=== PATIENT | female | born 1970 | race Caucasian/White ===

== ENCOUNTER 2019-09-20 19:25 | Inpatient (IN) | payer OTHER ==
[~2019-09-20] VITALS: Ht 172.7 cm; Wt 59.3 kg
[2019-09-20] MEDS ORDERED: SODIUM CHLORIDE 0.9% 1,000 ML IV ONE (19:30)
[2019-09-20] MEDS ORDERED: InsuLIN REG 1unit/0.01ml Soln (100units/ml) IV ONE (19:30)
[2019-09-20 20:04] LABS: Eosinophils # (auto) 0 10 ^3/uL (0-0.8); Eosinophils % (auto) 0.1 % (0.0-7.0); Monocytes # (auto) 0.3 10 ^3/uL (0-1.3); Neutrophils # (auto) 18.6 10 ^3/uL (1.6-8.6)
[2019-09-20 20:06] LABS: Basophils # (auto) 0 10 ^3/uL (0-0.2); Basophils % (auto) 0.2 % (0.0-2.0); Hematocrit 48.6 % (36.0-46.0); Hemoglobin 15.8 g/dL (12.2-16.2); Lymphocytes # (auto) 1.7 10 ^3/uL (0.4-5.4); Lymphocytes % (auto) 8.3 % (10.0-50.0); Mean Corpuscular Hemoglobin 28.2 pg (28.0-32.0); Mean Corpuscular Hgb Conc. 32.6 g/dL (32.0-36.0); Mean Corpuscular Volume 86.6 fL (80.0-100.0); Monocytes % (auto) 1.3 % (0.0-12.0); Neutrophils % (auto) 90.1 % (37.0-80.0); Platelet Count (auto) 455 10^3/uL (140-450); Red Blood Cells 5.61 10^6/uL (4.0-5.20); Red Cell Distribution Width 14.5 % (11.8-14.3); White Blood Cell 20.7 10^3/uL (4.4-10.8)
[2019-09-20 20:22] LABS: INR 0.98 (0.9-1.15); Partial Thromboplastin Time 35.7 sec (23.64-32.05)
[2019-09-20 20:23] LABS: Albumin 2.8 g/dL (3.4-5.0); Anion Gap 25 (5-15); Blood Urea Nitrogen 21 mg/dL (7-18); Calcium 8.5 mg/dL (8.5-10.1); Chloride 110 mmol/L (98-107); Magnesium 2.9 mg/dL (1.6-2.6); Potassium 4.2 mmol/L (3.5-5.1); Sodium 139 mmol/L (136-145)
[2019-09-20 20:30] LABS: Alanine Aminotransferase 16 U/L (13-56); Alkaline Phosphatase 93 U/L (45-117); Aspartate Aminotransferase 13 U/L (15-37); BUN/Creatinine Ratio 23.6; Bilirubin, Total 0.5 mg/dL (0.2-1.0); GFR African American 87 mL/min; GFR Non-African American 72 mL/min; Total Protein 7.9 g/dL (6.4-8.2)
[2019-09-20 20:43] LABS: Carbon Dioxide 4 mmol/L (21-32); Glucose 452 mg/dL (74-106)
[2019-09-20] MEDS ORDERED: SODIUM BICARBONATE 8.4 % INJ 50ML VIAL IV ONE ×3 (20:45→23:45)
[2019-09-20] MEDS ORDERED: ETOMIDATE (2MG/ML) 20ML VIAL IV ONE (20:45)
[2019-09-20] MEDS ORDERED: SUCCINYLCHOLINE CHLORIDE 20 MG/ML 10ML VIAL IV ONE (20:45)
[2019-09-20] MEDS ORDERED: SODIUM BICARBONATE 8.4% INJ 50ML SYRINGE ONE ×2 (20:46→21:12)
[2019-09-20] MEDS ORDERED: ATROPINE SULF 0.5 MG/5ML SYR ONE (21:10)
[2019-09-20] MEDS: MIDAZOLAM DRIP 50 mg/50mL 50 ML IV SCH (21:14)
[2019-09-20] MEDS ORDERED: ATROPINE SULF 1 MG/10ml SYR IV ONE (21:15)
[2019-09-20] MEDS ORDERED: MIDAZOLAM DRIP 50 mg/50mL 50 ML IV ONE (21:17)
[2019-09-20] MEDS ORDERED: MIDAZOLAM DRIP 50 mg/50mL 50 ML IV SCH (21:19)
[2019-09-20] MEDS ORDERED: InsuLIN R (HUMAN) 100 UNITS in SODIUM CHL 0.9% 99 ML IV SCH (23:04)
[2019-09-20 23:14] LABS: Urine Bacteria FEW /hpf (None Seen); Urine Blood TRACE /uL (Negative); Urine Specific Gravity 1.024 (1.001-1.035); Urine WBC 1 /hpf (0 - 5)
[2019-09-20 23:15] VITALS: BP 106/65
[2019-09-20] MEDS ORDERED: POTASSIUM CHL 20MEQ/100ML 100 ML IV ONE (23:15)
[2019-09-20] MEDS ORDERED: SODIUM CHLORIDE 0.9% 1,000 ML IV SCH (23:15)
[2019-09-20] MEDS ORDERED: InsuLIN REG 1unit/0.01ml Soln (100units/ml) ONE (23:18)
[2019-09-20] MEDS: ACCU-CHEK COMFORT CURVE STRIP VI SCH (23:42)
[2019-09-20] MEDS ORDERED: SODIUM CHLORIDE 0.9% 2,000 ML IV ONE (23:45)
[2019-09-21] VITALS (74 sets, daily range): BP systolic 66–161; BP diastolic 57–87
[2019-09-21] MEDS ORDERED: SODIUM BICARBONATE 8.4% INJ 50ML SYRINGE ONE ×2 (00:02→03:10)
[2019-09-21] MEDS: ACCU-CHEK COMFORT CURVE STRIP VI SCH ×15 (00:44→22:38)
[2019-09-21] MEDS ORDERED: dilTIAZem 25 MG/5 ML VIAL IV ONE (01:15)
[2019-09-21] MEDS: MIDAZOLAM DRIP 50 mg/50mL 50 ML IV SCH ×7 (01:24→21:22)
[2019-09-21] MEDS ORDERED: D5W/SOD CHLO 0.9% 1,000 ML IV SCH (02:00)
[2019-09-21] MEDS ORDERED: cefTRIAXone 1GM/50ML D5W 50 ML IV ONE (02:45)
[2019-09-21] MEDS ORDERED: DEXTROSE (50%) 50ML SYRG IV PRN (02:45)
[2019-09-21] MEDS ORDERED: ACCU-CHEK COMFORT CURVE STRIP VI SCH (02:45)
[2019-09-21] MEDS ORDERED: ONDANSETRON HCL 4 MG/2 ML VIAL IV PRN (02:45)
[2019-09-21] MEDS ORDERED: ACETAMINOPHEN 325 MG TAB PO PRN (02:45)
[2019-09-21] MEDS ORDERED: SODIUM BICARBONATE 50ML VIAL 100 ML in SOD CHL 0.45% 1,000 ML IV SCH (02:45)
[2019-09-21] MEDS ORDERED: MORPHINE SULF INJ 2 MG/ML SYRINGE 1ML IV PRN (03:15)
[2019-09-21] MEDS ORDERED: NITROGLYCERIN 0.4 MG SL TAB SL PRN (03:15)
[2019-09-21] MEDS: InsuLIN R (HUMAN) 100 UNITS in SODIUM CHL 0.9% 99 ML IV SCH (03:20)
[2019-09-21 03:34] LABS: BUN/Creatinine Ratio 25.8; Calcium 7.3 mg/dL (8.5-10.1); Potassium 4.1 mmol/L (3.5-5.1)
[2019-09-21] MEDS ORDERED: ACETAMINOPHEN 650 MG RECT SUPP PR ONE (04:15)
[2019-09-21] MEDS ORDERED: SODIUM CHLORIDE 0.9% 1,000 ML IV SCH ×2 (06:33→08:33)
[2019-09-21] MEDS ORDERED: SODIUM BICARBONATE 50ML VIAL 150 ML in SOD CHL 0.45% 1,000 ML IV SCH (07:30)
[2019-09-21] MEDS ORDERED: SODIUM BICARBONATE 8.4 % INJ 50ML VIAL IV ONE (07:30)
[2019-09-21 08:01] LABS: Calcium 7.5 mg/dL (8.5-10.1); Potassium 3.6 mmol/L (3.5-5.1)
[2019-09-21 08:04] LABS: BUN/Creatinine Ratio 17.2
[2019-09-21] MEDS: PANTOPRAZOLE 40 MG/10 ML VIAL INJ IV SCH (08:17)
[2019-09-21] MEDS: cefTRIAXone 1GM/50ML D5W 50 ML IV SCH (08:18)
[2019-09-21] MEDS: PROPOFOL 100 ML IV SCH ×2 (10:23→16:48)
[2019-09-21] MEDS ORDERED: ENOXAPARIN SOD 40 MG/0.4 ML SYRINGE SC ONE (12:15)
[2019-09-21] MEDS: D5W/SOD CHL 0.45% 1,000 ML IV SCH ×2 (12:30→21:58)
[2019-09-21 12:46] LABS: Amylase 24 U/L (25-115); Basophils # (auto) 0 10 ^3/uL (0-0.2); Basophils % (auto) 0.2 % (0.0-2.0); Eosinophils # (auto) 0 10 ^3/uL (0-0.8); Hematocrit 39.8 % (36.0-46.0); Hemoglobin 13.2 g/dL (12.2-16.2); Lipase 151 U/L (73-393); Lymphocytes # (auto) 0.7 10 ^3/uL (0.4-5.4); Lymphocytes % (auto) 5.2 % (10.0-50.0); Mean Corpuscular Hgb Conc. 33.1 g/dL (32.0-36.0); Mean Corpuscular Volume 84.8 fL (80.0-100.0); Monocytes # (auto) 0.9 10 ^3/uL (0-1.3); Monocytes % (auto) 6.3 % (0.0-12.0); Neutrophils # (auto) 12.4 10 ^3/uL (1.6-8.6); Neutrophils % (auto) 88.3 % (37.0-80.0); Nucleated Red Blood Cells % 0.1 %; Platelet Count (auto) 280 10^3/uL (140-450); White Blood Cell 14.1 10^3/uL (4.4-10.8)
[2019-09-21] MEDS: FREE WATER GT SCH ×3 (13:29→21:58)
[2019-09-21] MEDS ORDERED: POTASSIUM PHOSPHATE 44 MEQ in D5W 5% 250 ML IV ONE (13:30)
[2019-09-21 16:12] LABS: BUN/Creatinine Ratio 11.1; Calcium 7.7 mg/dL (8.5-10.1); Potassium 3.3 mmol/L (3.5-5.1)
[2019-09-21 21:51] LABS: Calcium 7.9 mg/dL (8.5-10.1); Potassium 3.4 mmol/L (3.5-5.1)
[2019-09-22] VITALS (105 sets, daily range): BP systolic 101–163; BP diastolic 59–95
[2019-09-22] MEDS: MIDAZOLAM DRIP 50 mg/50mL 50 ML IV SCH ×7 (00:42→20:42)
[2019-09-22] MEDS: ACCU-CHEK COMFORT CURVE STRIP VI SCH ×16 (01:37→22:30)
[2019-09-22] MEDS: FREE WATER GT SCH ×6 (02:00→22:00)
[2019-09-22] MEDS: InsuLIN R (HUMAN) 100 UNITS in SODIUM CHL 0.9% 99 ML IV SCH (02:33)
[2019-09-22 04:23] LABS: Basophils # (auto) 0 10 ^3/uL (0-0.2); Basophils % (auto) 0.2 % (0.0-2.0); Eosinophils # (auto) 0 10 ^3/uL (0-0.8); Hematocrit 48.5 % (36.0-46.0); Hemoglobin 15.4 g/dL (12.2-16.2); Lymphocytes # (auto) 1.2 10 ^3/uL (0.4-5.4); Lymphocytes % (auto) 7.4 % (10.0-50.0); Mean Corpuscular Hemoglobin 28.4 pg (28.0-32.0); Mean Corpuscular Hgb Conc. 31.8 g/dL (32.0-36.0); Mean Corpuscular Volume 89.2 fL (80.0-100.0); Monocytes # (auto) 1.2 10 ^3/uL (0-1.3); Neutrophils # (auto) 14.3 10 ^3/uL (1.6-8.6); Neutrophils % (auto) 85.4 % (37.0-80.0); Platelet Count (auto) 242 10^3/uL (140-450); Red Blood Cells 5.44 10^6/uL (4.0-5.20); Red Cell Distribution Width 15.6 % (11.8-14.3); White Blood Cell 16.8 10^3/uL (4.4-10.8)
[2019-09-22 04:42] LABS: Calcium 8.2 mg/dL (8.5-10.1); Potassium 3.2 mmol/L (3.5-5.1)
[2019-09-22 04:46] LABS: Bilirubin, Total 0.4 mg/dL (0.2-1.0); Total Protein 7.3 g/dL (6.4-8.2)
[2019-09-22 07:39] LABS: Albumin 2.2 g/dL (3.4-5.0)
[2019-09-22] MEDS: D5W/SOD CHL 0.45% 1,000 ML IV SCH (08:00)
[2019-09-22] MEDS: cefTRIAXone 1GM/50ML D5W 50 ML IV SCH (08:55)
[2019-09-22] MEDS: PANTOPRAZOLE 40 MG/10 ML VIAL INJ IV SCH (09:33)
[2019-09-22] MEDS: ENOXAPARIN SOD 40 MG/0.4 ML SYRINGE SC SCH (09:33)
[2019-09-22] MEDS: PROPOFOL 100 ML IV SCH ×3 (09:33→16:17)
[2019-09-22] MEDS ORDERED: FUROSEMIDE 40 MG/4 ML VIAL IV ONE (09:45)
[2019-09-22] MEDS ORDERED: POTASSIUM EFFERVESENT TAB 25 MEQ GT ONE ×2 (09:45→10:15)
[2019-09-22] MEDS: D5W 5% 1,000 ML IV SCH (10:12)
[2019-09-22] MEDS: POTASSIUM CHL 20MEQ/100ML 100 ML IV SCH ×2 (10:12→11:52)
[2019-09-22 10:32] LABS: Magnesium 2.7 mg/dL (1.6-2.6); Phosphorus 2.1 mg/dL (2.5-4.90)
[2019-09-22 11:14] LABS: Amphetamine Screen, Urine NEGATIVE (NEGATIVE); Barbiturate Scree,Urine NEGATIVE (NEGATIVE); Benzodiazephine Screen, Urine POSITIVE (NEGATIVE); Cannabinoid Screen, Urine NEGATIVE (NEGATIVE); Cocaine Screen, Urine NEGATIVE (NEGATIVE); Opiate Scree,Urine NEGATIVE (NEGATIVE); Phencyclidine Screen, Urine NEGATIVE (NEGATIVE)
[2019-09-22] MEDS ORDERED: AZITHROMYCIN 500MG/ 250ML 250 ML IV ONE (11:30)
[2019-09-22 17:24] LABS: BUN/Creatinine Ratio 7.2; Calcium 8.3 mg/dL (8.5-10.1); Potassium 3.6 mmol/L (3.5-5.1)
[2019-09-23] VITALS (109 sets, daily range): BP systolic 106–162; BP diastolic 64–92
[2019-09-23] MEDS: MIDAZOLAM DRIP 50 mg/50mL 50 ML IV SCH ×8 (00:23→23:36)
[2019-09-23] MEDS: ACCU-CHEK COMFORT CURVE STRIP VI SCH ×11 (01:45→20:00)
[2019-09-23] MEDS: FREE WATER GT SCH ×6 (02:00→22:00)
[2019-09-23] MEDS: InsuLIN R (HUMAN) 100 UNITS in SODIUM CHL 0.9% 99 ML IV SCH (02:45)
[2019-09-23 05:15] LABS: Potassium 3.1 mmol/L (3.5-5.1)
[2019-09-23 05:21] LABS: BUN/Creatinine Ratio 11.3; Calcium 8.2 mg/dL (8.5-10.1)
[2019-09-23] MEDS: D5W 5% 1,000 ML IV SCH (06:03)
[2019-09-23] MEDS: cefTRIAXone 1GM/50ML D5W 50 ML IV SCH (09:06)
[2019-09-23] MEDS: PROPOFOL 100 ML IV SCH (09:06)
[2019-09-23] MEDS ORDERED: LOSA-69 PO (09:19)
[2019-09-23] MEDS ORDERED: [UNRECOGNIZED DRUG - CODE] PO (09:20)
[2019-09-23] MEDS: ENOXAPARIN SOD 40 MG/0.4 ML SYRINGE SC SCH (09:52)
[2019-09-23] MEDS: AZITHROMYCIN 500MG/ 250ML 250 ML IV SCH (09:52)
[2019-09-23] MEDS: PANTOPRAZOLE 40 MG/10 ML VIAL INJ IV SCH (09:52)
[2019-09-23] MEDS ORDERED: INSULIN LANTUS (GLARGINE) 1 /0.01ml (100units/ml) SC ONE (10:30)
[2019-09-23] MEDS: POTASSIUM CHL 20MEQ/100ML 100 ML IV SCH ×2 (10:53→12:35)
[2019-09-23] MEDS ORDERED: EMPA1TAB3 PO (13:04)
[2019-09-23] MEDS ORDERED: LEVO50TA7 PO (13:04)
[2019-09-23] MEDS ORDERED: GLIP5TAB12 PO (13:04)
[2019-09-23] MEDS ORDERED: METF1000 PO (13:04)
[2019-09-23] MEDS ORDERED: OMEG1400 PO (13:04)
[2019-09-23] MEDS ORDERED: DEXTROSE (50%) 50ML SYRG IV PRN (13:45)
[2019-09-23] MEDS: DexMEDEtomidine 400 MCG in D5W 5% 96 ML IV SCH (13:59)
[2019-09-23] MEDS: InsuLIN REG 1unit/0.01ml Soln (100units/ml) SC SCH ×2 (16:00→20:00)
[2019-09-23] MEDS ORDERED: SODIUM PHOSPHATES 40 MEQ in D5W 5% 250 ML IV ONE (16:15)
[2019-09-23] MEDS ORDERED: FLUCONAZOLE 200MG/100ML 100 ML IV ONE (17:00)
[2019-09-24] VITALS (97 sets, daily range): BP systolic 99–164; BP diastolic 64–97
[2019-09-24] MEDS: FREE WATER GT SCH ×6 (02:00→22:09)
[2019-09-24] MEDS: D5W 5% 1,000 ML IV SCH (02:00)
[2019-09-24] MEDS: MIDAZOLAM DRIP 50 mg/50mL 50 ML IV SCH ×7 (02:42→23:53)
[2019-09-24] MEDS: ACCU-CHEK COMFORT CURVE STRIP VI SCH ×12 (04:00→23:52)
[2019-09-24] MEDS: InsuLIN REG 1unit/0.01ml Soln (100units/ml) SC SCH ×3 (04:00→08:40)
[2019-09-24 04:36] LABS: Basophils # (auto) 0 10 ^3/uL (0-0.2); Basophils % (auto) 0.2 % (0.0-2.0); Eosinophils # (auto) 0 10 ^3/uL (0-0.8); Hematocrit 42.6 % (36.0-46.0); Hemoglobin 14.1 g/dL (12.2-16.2); Lymphocytes # (auto) 1.6 10 ^3/uL (0.4-5.4); Lymphocytes % (auto) 7.5 % (10.0-50.0); Mean Corpuscular Hemoglobin 28.3 pg (28.0-32.0); Mean Corpuscular Hgb Conc. 33.1 g/dL (32.0-36.0); Mean Corpuscular Volume 85.6 fL (80.0-100.0); Monocytes # (auto) 0.9 10 ^3/uL (0-1.3); Monocytes % (auto) 4.4 % (0.0-12.0); Neutrophils # (auto) 18.6 10 ^3/uL (1.6-8.6); Neutrophils % (auto) 87.9 % (37.0-80.0); Nucleated Red Blood Cells % 0.1 %; Platelet Count (auto) 243 10^3/uL (140-450); Red Blood Cells 4.98 10^6/uL (4.0-5.20); Red Cell Distribution Width 15.5 % (11.8-14.3); White Blood Cell 21.1 10^3/uL (4.4-10.8)
[2019-09-24 05:07] LABS: Alanine Aminotransferase 9 U/L (13-56); Alkaline Phosphatase 100 U/L (45-117); Aspartate Aminotransferase 8 U/L (15-37); Bilirubin, Total 0.5 mg/dL (0.2-1.0); Blood Urea Nitrogen 10 mg/dL (7-18); Calcium 8.7 mg/dL (8.5-10.1); Carbon Dioxide 12 mmol/L (21-32); GFR African American 76 mL/min; GFR Non-African American 63 mL/min; Glucose 213 mg/dL (74-106); Phosphorus 2.4 mg/dL (2.5-4.90); Total Protein 7.5 g/dL (6.4-8.2)
[2019-09-24 05:16] LABS: Albumin 1.8 g/dL (3.4-5.0); Anion Gap 18 (5-15); Chloride 119 mmol/L (98-107); Sodium 149 mmol/L (136-145)
[2019-09-24] MEDS: cefTRIAXone 1GM/50ML D5W 50 ML IV SCH (08:45)
[2019-09-24] MEDS: AZITHROMYCIN 500MG/ 250ML 250 ML IV SCH (10:26)
[2019-09-24] MEDS: POTASSIUM CHL 20MEQ/100ML 100 ML IV SCH ×4 (10:26→22:09)
[2019-09-24] MEDS: ENOXAPARIN SOD 40 MG/0.4 ML SYRINGE SC SCH (10:27)
[2019-09-24] MEDS: PANTOPRAZOLE 40 MG/10 ML VIAL INJ IV SCH (10:27)
[2019-09-24] MEDS ORDERED: SODIUM BICARBONATE 8.4 % INJ 50ML VIAL IV ONE (10:45)
[2019-09-24] MEDS: POTASSIUM CHLORIDE 40 MEQ in D5W 5% 1,000 ML IV SCH (11:24)
[2019-09-24] MEDS: PROPOFOL 100 ML IV SCH ×3 (11:43→23:53)
[2019-09-24] MEDS: InsuLIN R (HUMAN) 100 UNITS in SODIUM CHL 0.9% 99 ML IV SCH (11:43)
[2019-09-24] MEDS: FLUCONAZOLE 200MG/100ML 100 ML IV SCH (12:53)
[2019-09-24] MEDS: DexMEDEtomidine 400 MCG in D5W 5% 96 ML IV SCH (13:17)
[2019-09-24 18:03] LABS: BUN/Creatinine Ratio 9.3; Calcium 8.4 mg/dL (8.5-10.1); Potassium 3.3 mmol/L (3.5-5.1)
[2019-09-24] MEDS: fentaNYL Drip 2500mCg/250mlNS 250 ML IV SCH (21:00)
[2019-09-24] MEDS: PIPERACILLIN-TAZOB 3.375GM 100 ML IV SCH (23:52)
[2019-09-25] VITALS (103 sets, daily range): BP systolic 56–126; BP diastolic 49–77
[2019-09-25] MEDS: ACCU-CHEK COMFORT CURVE STRIP VI SCH ×9 (01:30→18:23)
[2019-09-25] MEDS: FREE WATER GT SCH ×6 (02:00→21:28)
[2019-09-25] MEDS: MIDAZOLAM DRIP 50 mg/50mL 50 ML IV SCH ×7 (02:02→22:02)
[2019-09-25 04:25] LABS: Basophils # (auto) 0.1 10 ^3/uL (0-0.2); Basophils % (auto) 0.3 % (0.0-2.0); Eosinophils # (auto) 0 10 ^3/uL (0-0.8); Eosinophils % (auto) 0.2 % (0.0-7.0); Hematocrit 35.9 % (36.0-46.0); Hemoglobin 12.1 g/dL (12.2-16.2); Lymphocytes # (auto) 1.4 10 ^3/uL (0.4-5.4); Lymphocytes % (auto) 9.2 % (10.0-50.0); Mean Corpuscular Hemoglobin 28.6 pg (28.0-32.0); Mean Corpuscular Hgb Conc. 33.7 g/dL (32.0-36.0); Mean Corpuscular Volume 84.9 fL (80.0-100.0); Monocytes # (auto) 0.6 10 ^3/uL (0-1.3); Monocytes % (auto) 3.9 % (0.0-12.0); Neutrophils # (auto) 12.9 10 ^3/uL (1.6-8.6); Neutrophils % (auto) 86.4 % (37.0-80.0); Nucleated Red Blood Cells % 0.1 %; Platelet Count (auto) 237 10^3/uL (140-450); Red Blood Cells 4.23 10^6/uL (4.0-5.20); Red Cell Distribution Width 15.4 % (11.8-14.3)
[2019-09-25] MEDS: PROPOFOL 100 ML IV SCH ×3 (04:30→21:38)
[2019-09-25 04:42] LABS: Calcium 8.6 mg/dL (8.5-10.1); Magnesium 2.5 mg/dL (1.6-2.6); Potassium 3.2 mmol/L (3.5-5.1)
[2019-09-25 04:46] LABS: BUN/Creatinine Ratio 10.6; Bilirubin, Total 0.4 mg/dL (0.2-1.0); Phosphorus 1.7 mg/dL (2.5-4.90); Total Protein 7.3 g/dL (6.4-8.2)
[2019-09-25 05:27] LABS: Albumin 1.6 g/dL (3.4-5.0)
[2019-09-25] MEDS: PIPERACILLIN-TAZOB 3.375GM 100 ML IV SCH ×3 (05:33→18:22)
[2019-09-25 05:44] LABS: INR 0.93 (0.9-1.15); Partial Thromboplastin Time 31.3 sec (23.64-32.05)
[2019-09-25] MEDS ORDERED: SODIUM PHOSPHATES 20 MEQ in SODIUM CHL 0.9% 100 ML IV ONE (05:45)
[2019-09-25] MEDS: POTASSIUM CHL 20MEQ/100ML 100 ML IV SCH ×2 (06:09→08:42)
[2019-09-25] MEDS: POTASSIUM CHLORIDE 40 MEQ in D5W 5% 1,000 ML IV SCH ×2 (07:09→21:30)
[2019-09-25] MEDS: ENOXAPARIN SOD 40 MG/0.4 ML SYRINGE SC SCH (09:53)
[2019-09-25] MEDS: PANTOPRAZOLE 40 MG/10 ML VIAL INJ IV SCH (09:53)
[2019-09-25] MEDS ORDERED: levoFLOXacin 750MG 150 ML IV SCH (10:00)
[2019-09-25] MEDS: InsuLIN R (HUMAN) 100 UNITS in SODIUM CHL 0.9% 99 ML IV SCH (10:44)
[2019-09-25] MEDS: FLUCONAZOLE 200MG/100ML 100 ML IV SCH (12:22)
[2019-09-25] MEDS: DexMEDEtomidine 400 MCG in D5W 5% 96 ML IV SCH (13:01)
[2019-09-25 14:57] LABS: Albumin 1.4 g/dL (3.4-5.0); Calcium 8.2 mg/dL (8.5-10.1); Potassium 3.6 mmol/L (3.5-5.1)
[2019-09-25 15:00] LABS: BUN/Creatinine Ratio 14.3; Bilirubin, Total 0.2 mg/dL (0.2-1.0); Total Protein 6.3 g/dL (6.4-8.2)
[2019-09-25] MEDS ORDERED: DEXTROSE (50%) 50ML SYRG IV PRN (15:45)
[2019-09-25] MEDS: InsuLIN REG 1unit/0.01ml Soln (100units/ml) SC SCH (18:29)
[2019-09-25] MEDS: fentaNYL Drip 2500mCg/250mlNS 250 ML IV SCH (20:50)
[2019-09-25] MEDS: INSULIN LANTUS (GLARGINE) 1 /0.01ml (100units/ml) SC SCH (21:38)
[2019-09-25] MEDS ORDERED: INSULIN LANTUS (GLARGINE) 1 /0.01ml (100units/ml) SC SCH (22:00)
[2019-09-26] VITALS (100 sets, daily range): BP systolic 89–150; BP diastolic 60–92
[2019-09-26] MEDS: InsuLIN REG 1unit/0.01ml Soln (100units/ml) SC SCH ×4 (00:15→18:06)
[2019-09-26] MEDS: PIPERACILLIN-TAZOB 3.375GM 100 ML IV SCH ×3 (00:15→12:07)
[2019-09-26] MEDS: ACCU-CHEK COMFORT CURVE STRIP VI SCH ×4 (00:15→18:05)
[2019-09-26] MEDS: MIDAZOLAM DRIP 50 mg/50mL 50 ML IV SCH ×7 (01:22→21:22)
[2019-09-26] MEDS: FREE WATER GT SCH ×6 (02:00→22:00)
[2019-09-26 04:26] LABS: Basophils # (auto) 0 10 ^3/uL (0-0.2); Basophils % (auto) 0.2 % (0.0-2.0); Eosinophils # (auto) 0.1 10 ^3/uL (0-0.8); Eosinophils % (auto) 1.5 % (0.0-7.0); Hematocrit 30.4 % (36.0-46.0); Hemoglobin 10.3 g/dL (12.2-16.2); Lymphocytes % (auto) 13.3 % (10.0-50.0); Mean Corpuscular Hemoglobin 28.3 pg (28.0-32.0); Mean Corpuscular Hgb Conc. 33.8 g/dL (32.0-36.0); Mean Corpuscular Volume 83.9 fL (80.0-100.0); Monocytes # (auto) 0.6 10 ^3/uL (0-1.3); Monocytes % (auto) 7.5 % (0.0-12.0); Neutrophils % (auto) 77.5 % (37.0-80.0); Nucleated Red Blood Cells % 0.1 %; Platelet Count (auto) 208 10^3/uL (140-450); Red Blood Cells 3.63 10^6/uL (4.0-5.20); Red Cell Distribution Width 15.1 % (11.8-14.3); White Blood Cell 7.8 10^3/uL (4.4-10.8)
[2019-09-26 04:46] LABS: Potassium 3.6 mmol/L (3.5-5.1)
[2019-09-26 04:55] LABS: BUN/Creatinine Ratio 19.4; Bilirubin, Total 0.2 mg/dL (0.2-1.0); Calcium 8.2 mg/dL (8.5-10.1); Magnesium 2.6 mg/dL (1.6-2.6); Phosphorus 2.9 mg/dL (2.5-4.90); Total Protein 6.4 g/dL (6.4-8.2)
[2019-09-26 04:59] LABS: INR 0.95 (0.9-1.15)
[2019-09-26 05:17] LABS: Albumin 1.3 g/dL (3.4-5.0)
[2019-09-26] MEDS: PANTOPRAZOLE 40 MG/10 ML VIAL INJ IV SCH (09:46)
[2019-09-26] MEDS: ENOXAPARIN SOD 40 MG/0.4 ML SYRINGE SC SCH (09:46)
[2019-09-26] MEDS: FLUCONAZOLE 200MG/100ML 100 ML IV SCH (12:07)
[2019-09-26] MEDS: DexMEDEtomidine 400 MCG in D5W 5% 96 ML IV SCH (12:45)
[2019-09-26] MEDS ORDERED: MICAFUNGIN SODIUM 100 MG in SODIUM CHL 0.9% 100 ML IV ONE (14:15)
[2019-09-26] MEDS ORDERED: FUROSEMIDE 40 MG/4 ML VIAL IV ONE (14:15)
[2019-09-26] MEDS: fentaNYL Drip 2500mCg/250mlNS 250 ML IV SCH (20:50)
[2019-09-27] VITALS (100 sets, daily range): BP systolic 100–179; BP diastolic 62–123
[2019-09-27] MEDS: MIDAZOLAM DRIP 50 mg/50mL 50 ML IV SCH ×6 (00:42→17:22)
[2019-09-27] MEDS: InsuLIN REG 1unit/0.01ml Soln (100units/ml) SC SCH ×4 (01:33→18:06)
[2019-09-27] MEDS: ACCU-CHEK COMFORT CURVE STRIP VI SCH ×4 (01:33→18:05)
[2019-09-27] MEDS: INSULIN LANTUS (GLARGINE) 1 /0.01ml (100units/ml) SC SCH ×2 (01:34→22:19)
[2019-09-27] MEDS: FREE WATER GT SCH ×5 (01:37→22:17)
[2019-09-27] MEDS ORDERED: MICAFUNGIN SODIUM 100 MG in SODIUM CHL 0.9% 100 ML IV SCH (10:00)
[2019-09-27] MEDS ORDERED: levoFLOXacin 750MG 150 ML IV SCH (10:00)
[2019-09-27] MEDS: ENOXAPARIN SOD 40 MG/0.4 ML SYRINGE SC SCH (10:31)
[2019-09-27] MEDS: PANTOPRAZOLE 40 MG/10 ML VIAL INJ IV SCH (10:32)
[2019-09-27] MEDS: PROPOFOL 100 ML IV SCH ×2 (10:34→18:00)
[2019-09-27] MEDS: fentaNYL Drip 2500mCg/250mlNS 250 ML IV SCH (10:45)
[2019-09-27] MEDS: DexMEDEtomidine 400 MCG in D5W 5% 96 ML IV SCH (12:29)
[2019-09-27] MEDS ORDERED: IOHEXOL 350 MG/ML 100ML IJ ONE (14:04)
[2019-09-27] MEDS ORDERED: TPN PER PHARMACY 0 ML IV SCH (14:15)
[2019-09-27] MEDS ORDERED: VANCOMYCIN PER PHARMACY 0 MG IV SCH (15:30)
[2019-09-27] MEDS: VANCOMYCIN 1GM/250ML 250 ML IV SCH (17:05)
[2019-09-27] MEDS ORDERED: AMINO ACID INFUSION IN D5W 2,000 ML IV NR (20:00)
[2019-09-28] VITALS (100 sets, daily range): BP systolic 83–164; BP diastolic 49–93
[2019-09-28] MEDS ORDERED: DEXTROSE (50%) 50ML SYRG IV SCH
[2019-09-28] MEDS: VANCOMYCIN 1GM/250ML 250 ML IV SCH ×3 (01:00→19:41)
[2019-09-28] MEDS: FREE WATER GT SCH ×6 (02:00→22:06)
[2019-09-28 05:08] LABS: Calcium 8.9 mg/dL (8.5-10.1); Magnesium 2.3 mg/dL (1.6-2.6)
[2019-09-28 05:13] LABS: BUN/Creatinine Ratio 18.6; Bilirubin, Total 0.3 mg/dL (0.2-1.0); Phosphorus 3.7 mg/dL (2.5-4.90); Pre Albumin 7.3 mg/dL (20.0-40.0)
[2019-09-28 05:38] LABS: Albumin 1.2 g/dL (3.4-5.0)
[2019-09-28] MEDS: ACCU-CHEK COMFORT CURVE STRIP VI SCH ×4 (06:24→17:59)
[2019-09-28] MEDS: InsuLIN REG 1unit/0.01ml Soln (100units/ml) SC SCH ×4 (06:26→18:11)
[2019-09-28] MEDS ORDERED: BENZOCAINE (DENTAL) 20 % SPRAY 60ML MT ONE (08:26)
[2019-09-28] MEDS ORDERED: SODIUM CHLORIDE LOCK 10 ML ONE (08:26)
[2019-09-28] MEDS ORDERED: LIDOCAINE 2%HCL (LOCAL ANESTH.) INJ 20ML MDV ONE (08:26)
[2019-09-28] MEDS ORDERED: EPINEPHrine HCL 1 MG/1 ML AMP ONE (08:27)
[2019-09-28] MEDS ORDERED: MIDAZOLAM HCL 5 MG/ML-1ML VIAL ONE (08:27)
[2019-09-28] MEDS ORDERED: fentaNYL CITRATE 100 MCG/2 ML VL ONE (08:27)
[2019-09-28] MEDS ORDERED: LIDOCAINE HCL 2% TOP JELLY 5ML TOP ONE (08:27)
[2019-09-28] MEDS: PANTOPRAZOLE 40 MG/10 ML VIAL INJ IV SCH (10:55)
[2019-09-28] MEDS ORDERED: ACETYLCYSTEINE 10 %(100MG/ML) SOL 4ML NEB ONE (11:00)
[2019-09-28] MEDS ORDERED: ACETYLCYSTEINE 20%(200MG/ML) SOL 4ML ONE (11:07)
[2019-09-28] MEDS: PROPOFOL 100 ML IV SCH ×2 (11:07→20:00)
[2019-09-28] MEDS: POTASSIUM CHL 20MEQ/100ML 100 ML IV SCH ×4 (11:10→16:31)
[2019-09-28] MEDS: DexMEDEtomidine 400 MCG in D5W 5% 96 ML IV SCH (12:13)
[2019-09-28] MEDS ORDERED: LIDOCAINE 1% (LOCAL ANESTH.) PF 5ml SDV ID ONE (13:45)
[2019-09-28] MEDS: MICAFUNGIN SODIUM 100 MG in SODIUM CHL 0.9% 100 ML IV SCH (14:09)
[2019-09-28] MEDS: ENOXAPARIN SOD 40 MG/0.4 ML SYRINGE SC SCH (14:15)
[2019-09-28] MEDS: levoFLOXacin 750MG 150 ML IV SCH (15:47)
[2019-09-28] MEDS: fentaNYL Drip 2500mCg/250mlNS 250 ML IV SCH (18:15)
[2019-09-28] MEDS ORDERED: PPN PER PHARMACY IV NR ×9 (20:00)
[2019-09-28] MEDS: INSULIN LANTUS (GLARGINE) 1 /0.01ml (100units/ml) SC SCH (21:56)
[2019-09-28] MEDS: SODIUM CHLOR 0.9% PF (SALINE LOCK) 10ML VIAL/SYR IV SCH (22:06)
[2019-09-28] MEDS: MIDAZOLAM DRIP 50 mg/50mL 50 ML IV SCH (23:22)
[2019-09-29] VITALS (103 sets, daily range): BP systolic 92–173; BP diastolic 57–107
[2019-09-29] MEDS: InsuLIN REG 1unit/0.01ml Soln (100units/ml) SC SCH ×4 (00:31→17:06)
[2019-09-29] MEDS: ACCU-CHEK COMFORT CURVE STRIP VI SCH ×4 (00:32→18:11)
[2019-09-29] MEDS: FREE WATER GT SCH ×2 (02:00→05:54)
[2019-09-29] MEDS: PROPOFOL 100 ML IV SCH ×2 (02:50→08:58)
[2019-09-29 03:57] LABS: Albumin 1.2 g/dL (3.4-5.0); Calcium 8.7 mg/dL (8.5-10.1); Magnesium 1.9 mg/dL (1.6-2.6); Potassium 3.5 mmol/L (3.5-5.1)
[2019-09-29 04:00] LABS: BUN/Creatinine Ratio 31.7; Bilirubin, Total 0.2 mg/dL (0.2-1.0); Total Protein 6.5 g/dL (6.4-8.2)
[2019-09-29] MEDS: VANCOMYCIN 1GM/250ML 250 ML IV SCH ×3 (05:05→21:05)
[2019-09-29] MEDS: MIDAZOLAM DRIP 50 mg/50mL 50 ML IV SCH ×6 (06:02→22:42)
[2019-09-29] MEDS: fentaNYL Drip 2500mCg/250mlNS 250 ML IV SCH (06:24)
[2019-09-29] MEDS: PANTOPRAZOLE 40 MG/10 ML VIAL INJ IV SCH (09:56)
[2019-09-29] MEDS: ENOXAPARIN SOD 40 MG/0.4 ML SYRINGE SC SCH (09:56)
[2019-09-29] MEDS: SODIUM CHLOR 0.9% PF (SALINE LOCK) 10ML VIAL/SYR IV SCH ×2 (09:57→21:41)
[2019-09-29] MEDS ORDERED: POTASSIUM PHOSPHATE 22 MEQ in SODIUM CHL 0.9% 100 ML IV ONE ×2 (10:00→14:00)
[2019-09-29] MEDS: MICAFUNGIN SODIUM 100 MG in SODIUM CHL 0.9% 100 ML IV SCH (10:30)
[2019-09-29] MEDS: DexMEDEtomidine 400 MCG in D5W 5% 96 ML IV SCH (11:57)
[2019-09-29] MEDS: levoFLOXacin 750MG 150 ML IV SCH (12:08)
[2019-09-29] MEDS ORDERED: EPINEPHrine HCL 0.5 ML NEB ONE (14:28)
[2019-09-29] MEDS ORDERED: DexAMETHasone SOD PHOS 4 MG/1ML SDV INJ IM ONE (14:30)
[2019-09-29] MEDS ORDERED: FUROSEMIDE 40 MG/4 ML VIAL IV ONE (14:30)
[2019-09-29] MEDS ORDERED: EPINEPHrine HCL 0.5 ML NEB NEB ONE ×2 (14:30)
[2019-09-29] MEDS ORDERED: FUROSEMIDE 40 MG/4 ML VIAL ONE (14:32)
[2019-09-29] MEDS ORDERED: DexAMETHasone SOD PHOS 4 MG/1ML SDV INJ ONE (14:32)
[2019-09-29] MEDS ORDERED: ETOMIDATE (2MG/ML) 20ML VIAL IV ONE (14:40)
[2019-09-29] MEDS ORDERED: SUCCINYLCHOLINE CHLORIDE 20 MG/ML 10ML VIAL IV ONE (14:41)
[2019-09-29] MEDS: TPN PER PHARMACY IV NR ×8 (20:13)
[2019-09-29] MEDS ORDERED: LORazepam 2MG/ML-1ML VIAL IV ONE (21:00)
[2019-09-29] MEDS ORDERED: FUROSEMIDE 20 MG/2 ML VIAL IV ONE ×2 (21:00→21:30)
[2019-09-29] MEDS: INSULIN LANTUS (GLARGINE) 1 /0.01ml (100units/ml) SC SCH (21:47)
[2019-09-29] MEDS ORDERED: ALBUTEROL SULF 2.5 MG/0.5ML(0.5%) NEB SOLN NEB SCH (22:00)
[2019-09-29] MEDS: LEVALBUTEROL HCL 1.25 MG/3 ML NEB NEB SCH (22:11)
[2019-09-29] MEDS: IPRATROPIUM BROM 0.5 MG/2.5ML INH SOL NEB SCH (22:11)
[2019-09-29] MEDS: ACETYLCYSTEINE 10 %(100MG/ML) SOL 4ML NEB SCH (22:11)
[2019-09-30] VITALS (103 sets, daily range): BP systolic 86–172; BP diastolic 57–119
[2019-09-30] MEDS: ACCU-CHEK COMFORT CURVE STRIP VI SCH ×4 (00:04→17:31)
[2019-09-30] MEDS: InsuLIN REG 1unit/0.01ml Soln (100units/ml) SC SCH ×4 (00:13→17:41)
[2019-09-30] MEDS ORDERED: LORazepam 2MG/ML-1ML VIAL ONE (01:42)
[2019-09-30] MEDS ORDERED: LORazepam 2MG/ML-1ML VIAL IV ONE (01:45)
[2019-09-30] MEDS: LEVALBUTEROL HCL 1.25 MG/3 ML NEB NEB SCH ×6 (01:57→22:15)
[2019-09-30] MEDS: IPRATROPIUM BROM 0.5 MG/2.5ML INH SOL NEB SCH ×6 (01:57→22:15)
[2019-09-30] MEDS: MIDAZOLAM DRIP 50 mg/50mL 50 ML IV SCH ×6 (02:02→22:02)
[2019-09-30] MEDS ORDERED: ETOMIDATE (2MG/ML) 20ML VIAL IV ONE (03:08)
[2019-09-30] MEDS ORDERED: SUCCINYLCHOLINE CHLORIDE 20 MG/ML 10ML VIAL IV ONE (03:09)
[2019-09-30] MEDS: PROPOFOL 100 ML IV SCH ×4 (03:20→21:39)
[2019-09-30] MEDS: fentaNYL Drip 2500mCg/250mlNS 250 ML IV SCH (03:25)
[2019-09-30 05:25] LABS: Potassium 3.5 mmol/L (3.5-5.1)
[2019-09-30 05:29] LABS: BUN/Creatinine Ratio 33.9; Bilirubin, Total 0.5 mg/dL (0.2-1.0); Phosphorus 4.4 mg/dL (2.5-4.90); Total Protein 7.8 g/dL (6.4-8.2)
[2019-09-30] MEDS: VANCOMYCIN 1GM/250ML 250 ML IV SCH ×3 (05:45→20:57)
[2019-09-30 05:49] LABS: Albumin 1.3 g/dL (3.4-5.0)
[2019-09-30] MEDS: ACETYLCYSTEINE 10 %(100MG/ML) SOL 4ML NEB SCH ×4 (06:21→22:16)
[2019-09-30] MEDS ORDERED: INSULIN LANTUS (GLARGINE) 1 /0.01ml (100units/ml) SC ONE (09:45)
[2019-09-30] MEDS: SODIUM CHLOR 0.9% PF (SALINE LOCK) 10ML VIAL/SYR IV SCH ×2 (10:00→22:10)
[2019-09-30] MEDS: ENOXAPARIN SOD 40 MG/0.4 ML SYRINGE SC SCH (10:00)
[2019-09-30] MEDS: PANTOPRAZOLE 40 MG/10 ML VIAL INJ IV SCH (10:00)
[2019-09-30] MEDS: MICAFUNGIN SODIUM 100 MG in SODIUM CHL 0.9% 100 ML IV SCH (10:50)
[2019-09-30] MEDS: DexMEDEtomidine 400 MCG in D5W 5% 96 ML IV SCH (11:41)
[2019-09-30] MEDS: MEROPENEM 1GM IVPB 100 ML IV SCH ×2 (13:40→22:10)
[2019-09-30] MEDS: methylPREDNISolone SOD SUCC 40 MG/ML VL IV SCH (17:46)
[2019-09-30] MEDS: TPN PER PHARMACY IV NR ×16 (19:29)
[2019-09-30] MEDS: INSULIN LANTUS (GLARGINE) 1 /0.01ml (100units/ml) SC SCH (22:13)
[2019-10-01] VITALS (106 sets, daily range): BP systolic 83–116; BP diastolic 48–73
[2019-10-01] MEDS: methylPREDNISolone SOD SUCC 40 MG/ML VL IV SCH ×5 (00:15→23:49)
[2019-10-01] MEDS: ACCU-CHEK COMFORT CURVE STRIP VI SCH ×5 (00:16→23:48)
[2019-10-01] MEDS: InsuLIN REG 1unit/0.01ml Soln (100units/ml) SC SCH ×5 (00:21→23:56)
[2019-10-01] MEDS: fentaNYL Drip 2500mCg/250mlNS 250 ML IV SCH (01:24)
[2019-10-01] MEDS: ACETYLCYSTEINE 10 %(100MG/ML) SOL 4ML NEB SCH ×6 (03:02→22:06)
[2019-10-01] MEDS: LEVALBUTEROL HCL 1.25 MG/3 ML NEB NEB SCH ×6 (03:03→22:06)
[2019-10-01] MEDS: IPRATROPIUM BROM 0.5 MG/2.5ML INH SOL NEB SCH ×6 (03:03→22:06)
[2019-10-01] MEDS: PROPOFOL 100 ML IV SCH (03:08)
[2019-10-01] MEDS: MIDAZOLAM DRIP 50 mg/50mL 50 ML IV SCH ×6 (04:42→18:02)
[2019-10-01] MEDS: VANCOMYCIN 1GM/250ML 250 ML IV SCH ×3 (04:44→21:53)
[2019-10-01 05:44] LABS: Basophils # (auto) 0 10 ^3/uL (0-0.2); Basophils % (auto) 0.2 % (0.0-2.0); Eosinophils # (auto) 0 10 ^3/uL (0-0.8); Eosinophils % (auto) 0.1 % (0.0-7.0); Hematocrit 29.9 % (36.0-46.0); Hemoglobin 10.2 g/dL (12.2-16.2); Lymphocytes # (auto) 0.6 10 ^3/uL (0.4-5.4); Lymphocytes % (auto) 6.4 % (10.0-50.0); Mean Corpuscular Hemoglobin 28.7 pg (28.0-32.0); Mean Corpuscular Hgb Conc. 34.1 g/dL (32.0-36.0); Monocytes # (auto) 0.4 10 ^3/uL (0-1.3); Monocytes % (auto) 3.9 % (0.0-12.0); Neutrophils # (auto) 8.9 10 ^3/uL (1.6-8.6); Neutrophils % (auto) 89.4 % (37.0-80.0); Platelet Count (auto) 301 10^3/uL (140-450); Red Blood Cells 3.56 10^6/uL (4.0-5.20); Red Cell Distribution Width 13.6 % (11.8-14.3)
[2019-10-01 05:59] LABS: Potassium 4.6 mmol/L (3.5-5.1)
[2019-10-01 06:06] LABS: Albumin 1.2 g/dL (3.4-5.0); BUN/Creatinine Ratio 52.1; Bilirubin, Total 0.2 mg/dL (0.2-1.0); Calcium 8.5 mg/dL (8.5-10.1); Magnesium 2.4 mg/dL (1.6-2.6); Phosphorus 3.3 mg/dL (2.5-4.90); Total Protein 6.9 g/dL (6.4-8.2)
[2019-10-01] MEDS: MEROPENEM 1GM IVPB 100 ML IV SCH ×3 (06:06→22:30)
[2019-10-01] MEDS ORDERED: INSULIN LANTUS (GLARGINE) 1 /0.01ml (100units/ml) SC SCH (07:00)
[2019-10-01] MEDS: SODIUM CHLOR 0.9% PF (SALINE LOCK) 10ML VIAL/SYR IV SCH ×2 (09:43→21:53)
[2019-10-01] MEDS: PANTOPRAZOLE 40 MG/10 ML VIAL INJ IV SCH (09:43)
[2019-10-01] MEDS: ENOXAPARIN SOD 40 MG/0.4 ML SYRINGE SC SCH (09:43)
[2019-10-01] MEDS: MICAFUNGIN SODIUM 100 MG in SODIUM CHL 0.9% 100 ML IV SCH (09:44)
[2019-10-01] MEDS: DexMEDEtomidine 400 MCG in D5W 5% 96 ML IV SCH (11:05)
[2019-10-01] MEDS: TPN PER PHARMACY IV NR ×8 (20:53)
[2019-10-01] MEDS: INSULIN 70/30 1unit/0.01ml Susp (100units/ml) SC SCH (22:31)
[2019-10-02] VITALS (99 sets, daily range): BP systolic 83–148; BP diastolic 48–99
[2019-10-02] MEDS: IPRATROPIUM BROM 0.5 MG/2.5ML INH SOL NEB SCH ×6 (01:56→22:04)
[2019-10-02] MEDS: LEVALBUTEROL HCL 1.25 MG/3 ML NEB NEB SCH ×6 (01:56→22:04)
[2019-10-02] MEDS: ACETYLCYSTEINE 10 %(100MG/ML) SOL 4ML NEB SCH ×6 (01:57→22:03)
[2019-10-02 04:25] LABS: Hematocrit 30.9 % (36.0-46.0); Hemoglobin 10.5 g/dL (12.2-16.2); Mean Corpuscular Hemoglobin 28.6 pg (28.0-32.0); Mean Corpuscular Hgb Conc. 33.9 g/dL (32.0-36.0); Mean Corpuscular Volume 84.4 fL (80.0-100.0); Platelet Count (auto) 334 10^3/uL (140-450); Red Blood Cells 3.66 10^6/uL (4.0-5.20); Red Cell Distribution Width 13.8 % (11.8-14.3); White Blood Cell 10.7 10^3/uL (4.4-10.8)
[2019-10-02 04:42] LABS: Potassium 4.5 mmol/L (3.5-5.1)
[2019-10-02 04:48] LABS: Basophils % (manual) 0 (0.0-2.0); Blast Cells 0; Eosinophils % (manual) 0 (0-7); Metamyelocytes % 0; Myelocytes % 0; Promyelocytes % 0; Reactive Lymphocytes 0
[2019-10-02 04:52] LABS: Albumin 1.3 g/dL (3.4-5.0); BUN/Creatinine Ratio 62.2; Bilirubin, Total 0.3 mg/dL (0.2-1.0); Calcium 8.2 mg/dL (8.5-10.1); Magnesium 2.2 mg/dL (1.6-2.6); Phosphorus 3.9 mg/dL (2.5-4.90); Pre Albumin 21.3 mg/dL (20.0-40.0); Total Protein 7.2 g/dL (6.4-8.2)
[2019-10-02] MEDS: VANCOMYCIN 1GM/250ML 250 ML IV SCH ×3 (04:56→21:23)
[2019-10-02] MEDS: MEROPENEM 1GM IVPB 100 ML IV SCH ×3 (05:54→22:24)
[2019-10-02] MEDS: ACCU-CHEK COMFORT CURVE STRIP VI SCH ×4 (06:00→23:40)
[2019-10-02] MEDS: methylPREDNISolone SOD SUCC 40 MG/ML VL IV SCH ×4 (06:00→23:39)
[2019-10-02] MEDS: InsuLIN REG 1unit/0.01ml Soln (100units/ml) SC SCH ×4 (06:13→23:49)
[2019-10-02 06:18] LABS: Band Neutrophils % (manual) 7; Lymphocytes % (manual) 10 (10.0-50.0); Monocytes % (manual) 1 (0-12)
[2019-10-02] MEDS: ENOXAPARIN SOD 40 MG/0.4 ML SYRINGE SC SCH (10:15)
[2019-10-02] MEDS: PANTOPRAZOLE 40 MG/10 ML VIAL INJ IV SCH (10:15)
[2019-10-02] MEDS: SODIUM CHLOR 0.9% PF (SALINE LOCK) 10ML VIAL/SYR IV SCH ×2 (10:15→22:24)
[2019-10-02] MEDS: INSULIN 70/30 1unit/0.01ml Susp (100units/ml) SC SCH ×2 (10:19→22:26)
[2019-10-02] MEDS: MIDAZOLAM DRIP 50 mg/50mL 50 ML IV SCH ×7 (10:42→20:42)
[2019-10-02] MEDS: PROPOFOL 100 ML IV SCH ×3 (11:00→16:53)
[2019-10-02] MEDS: TPN PER PHARMACY IV NR ×24 (11:00→20:24)
[2019-10-02] MEDS: DexMEDEtomidine 400 MCG in D5W 5% 96 ML IV SCH (11:09)
[2019-10-02] MEDS: MICAFUNGIN SODIUM 100 MG in SODIUM CHL 0.9% 100 ML IV SCH (11:12)
[2019-10-02] MEDS: fentaNYL Drip 2500mCg/250mlNS 250 ML IV SCH (12:16)
[2019-10-02] MEDS ORDERED: MIDAZOLAM HCL 5 MG/ML-1ML VIAL IV ONE ×2 (13:06→14:30)
[2019-10-02] MEDS ORDERED: LIDOCAINE HCL 2% TOP JELLY 5ML TOP ONE (13:52)
[2019-10-02] MEDS ORDERED: MIDAZOLAM HCL 5 MG/ML-1ML VIAL ONE (14:28)
[2019-10-03] VITALS (106 sets, daily range): BP systolic 106–187; BP diastolic 63–100
[2019-10-03] MEDS: MIDAZOLAM DRIP 50 mg/50mL 50 ML IV SCH ×8 (00:02→23:22)
[2019-10-03] MEDS: IPRATROPIUM BROM 0.5 MG/2.5ML INH SOL NEB SCH ×6 (02:05→22:29)
[2019-10-03] MEDS: ACETYLCYSTEINE 10 %(100MG/ML) SOL 4ML NEB SCH ×6 (02:05→22:29)
[2019-10-03] MEDS: LEVALBUTEROL HCL 1.25 MG/3 ML NEB NEB SCH ×6 (02:06→22:29)
[2019-10-03 04:41] LABS: Basophils # (auto) 0.1 10 ^3/uL (0-0.2); Basophils % (auto) 0.8 % (0.0-2.0); Eosinophils # (auto) 0 10 ^3/uL (0-0.8); Eosinophils % (auto) 0.1 % (0.0-7.0); Hematocrit 28.8 % (36.0-46.0); Hemoglobin 9.8 g/dL (12.2-16.2); Lymphocytes # (auto) 1.4 10 ^3/uL (0.4-5.4); Lymphocytes % (auto) 15.4 % (10.0-50.0); Mean Corpuscular Hemoglobin 28.9 pg (28.0-32.0); Mean Corpuscular Hgb Conc. 34.1 g/dL (32.0-36.0); Mean Corpuscular Volume 84.9 fL (80.0-100.0); Monocytes # (auto) 0.6 10 ^3/uL (0-1.3); Monocytes % (auto) 6.5 % (0.0-12.0); Neutrophils # (auto) 6.9 10 ^3/uL (1.6-8.6); Neutrophils % (auto) 77.2 % (37.0-80.0); Nucleated Red Blood Cells % 0.1 %; Platelet Count (auto) 294 10^3/uL (140-450); Red Blood Cells 3.39 10^6/uL (4.0-5.20); Red Cell Distribution Width 13.7 % (11.8-14.3); White Blood Cell 8.9 10^3/uL (4.4-10.8)
[2019-10-03 04:58] LABS: Albumin 1.4 g/dL (3.4-5.0); Calcium 8.1 mg/dL (8.5-10.1); Magnesium 2.2 mg/dL (1.6-2.6); Potassium 4.4 mmol/L (3.5-5.1)
[2019-10-03 05:01] LABS: BUN/Creatinine Ratio 48.8; Bilirubin, Total 0.2 mg/dL (0.2-1.0); Phosphorus 4.7 mg/dL (2.5-4.90); Total Protein 6.6 g/dL (6.4-8.2)
[2019-10-03] MEDS: VANCOMYCIN 1GM/250ML 250 ML IV SCH ×3 (05:15→20:09)
[2019-10-03] MEDS: methylPREDNISolone SOD SUCC 40 MG/ML VL IV SCH ×4 (05:38→23:15)
[2019-10-03] MEDS: ACCU-CHEK COMFORT CURVE STRIP VI SCH ×4 (05:48→23:08)
[2019-10-03] MEDS: InsuLIN REG 1unit/0.01ml Soln (100units/ml) SC SCH ×3 (06:01→18:00)
[2019-10-03] MEDS: MEROPENEM 1GM IVPB 100 ML IV SCH ×3 (06:47→21:41)
[2019-10-03] MEDS: MICAFUNGIN SODIUM 100 MG in SODIUM CHL 0.9% 100 ML IV SCH (11:02)
[2019-10-03] MEDS: DexMEDEtomidine 400 MCG in D5W 5% 96 ML IV SCH (11:02)
[2019-10-03] MEDS: PANTOPRAZOLE 40 MG/10 ML VIAL INJ IV SCH (11:02)
[2019-10-03] MEDS: ENOXAPARIN SOD 40 MG/0.4 ML SYRINGE SC SCH (11:02)
[2019-10-03] MEDS: SODIUM CHLOR 0.9% PF (SALINE LOCK) 10ML VIAL/SYR IV SCH ×2 (11:03→22:00)
[2019-10-03] MEDS: INSULIN 70/30 1unit/0.01ml Susp (100units/ml) SC SCH ×2 (11:13→22:00)
[2019-10-03] MEDS: fentaNYL Drip 2500mCg/250mlNS 250 ML IV SCH ×2 (11:15→20:50)
[2019-10-03] MEDS ORDERED: GLYCOPYRROLATE 0.2 MG/ML 1ML VIAL IV ONE (14:00)
[2019-10-03] MEDS ORDERED: DexAMETHasone SOD PHOS 4 MG/1ML SDV INJ IV ONE (14:00)
[2019-10-03] MEDS: TPN PER PHARMACY IV NR ×8 (19:00)
[2019-10-03] MEDS ORDERED: TPN PER PHARMACY IV NR ×8 (20:00)
[2019-10-04] VITALS (103 sets, daily range): BP systolic 129–173; BP diastolic 69–101
[2019-10-04] MEDS: DexMEDEtomidine 400 MCG in D5W 5% 96 ML IV SCH (01:43)
[2019-10-04] MEDS: IPRATROPIUM BROM 0.5 MG/2.5ML INH SOL NEB SCH ×6 (02:11→22:12)
[2019-10-04] MEDS: ACETYLCYSTEINE 10 %(100MG/ML) SOL 4ML NEB SCH ×6 (02:11→22:14)
[2019-10-04] MEDS: LEVALBUTEROL HCL 1.25 MG/3 ML NEB NEB SCH ×6 (02:12→22:13)
[2019-10-04] MEDS: MIDAZOLAM DRIP 50 mg/50mL 50 ML IV SCH ×4 (02:42→12:42)
[2019-10-04 04:18] LABS: Basophils # (auto) 0.1 10 ^3/uL (0-0.2); Basophils % (auto) 1.1 % (0.0-2.0); Eosinophils # (auto) 0 10 ^3/uL (0-0.8); Hematocrit 32.5 % (36.0-46.0); Hemoglobin 10.7 g/dL (12.2-16.2); Lymphocytes # (auto) 1.1 10 ^3/uL (0.4-5.4); Lymphocytes % (auto) 13.8 % (10.0-50.0); Mean Corpuscular Hemoglobin 27.8 pg (28.0-32.0); Mean Corpuscular Volume 84.2 fL (80.0-100.0); Monocytes # (auto) 0.5 10 ^3/uL (0-1.3); Monocytes % (auto) 6.3 % (0.0-12.0); Neutrophils # (auto) 6.4 10 ^3/uL (1.6-8.6); Neutrophils % (auto) 78.8 % (37.0-80.0); Nucleated Red Blood Cells % 0.1 %; Platelet Count (auto) 317 10^3/uL (140-450); Red Blood Cells 3.86 10^6/uL (4.0-5.20); Red Cell Distribution Width 13.5 % (11.8-14.3); White Blood Cell 8.1 10^3/uL (4.4-10.8)
[2019-10-04] MEDS: VANCOMYCIN 1GM/250ML 250 ML IV SCH ×3 (04:29→21:21)
[2019-10-04 04:37] LABS: Albumin 1.5 g/dL (3.4-5.0); Calcium 8.4 mg/dL (8.5-10.1); Magnesium 2.1 mg/dL (1.6-2.6); Potassium 4.2 mmol/L (3.5-5.1)
[2019-10-04 04:41] LABS: BUN/Creatinine Ratio 52.4; Bilirubin, Total 0.2 mg/dL (0.2-1.0); Phosphorus 3.6 mg/dL (2.5-4.90)
[2019-10-04] MEDS: ACCU-CHEK COMFORT CURVE STRIP VI SCH ×4 (06:28→23:58)
[2019-10-04] MEDS: methylPREDNISolone SOD SUCC 40 MG/ML VL IV SCH ×2 (06:29→11:45)
[2019-10-04] MEDS: MEROPENEM 1GM IVPB 100 ML IV SCH ×3 (06:29→22:15)
[2019-10-04] MEDS: InsuLIN REG 1unit/0.01ml Soln (100units/ml) SC SCH ×4 (06:34→18:15)
[2019-10-04] MEDS: PROPOFOL 100 ML IV SCH (09:42)
[2019-10-04] MEDS: MICAFUNGIN SODIUM 100 MG in SODIUM CHL 0.9% 100 ML IV SCH (10:32)
[2019-10-04] MEDS: PANTOPRAZOLE 40 MG/10 ML VIAL INJ IV SCH (10:32)
[2019-10-04] MEDS: ENOXAPARIN SOD 40 MG/0.4 ML SYRINGE SC SCH (10:32)
[2019-10-04] MEDS: INSULIN 70/30 1unit/0.01ml Susp (100units/ml) SC SCH ×2 (10:35→22:17)
[2019-10-04] MEDS: SODIUM CHLOR 0.9% PF (SALINE LOCK) 10ML VIAL/SYR IV SCH ×2 (10:51→22:15)
[2019-10-04] MEDS ORDERED: DEXTROSE (50%) 50ML SYRG IV PRN (14:30)
[2019-10-04] MEDS ORDERED: TPN PER PHARMACY IV NR ×11 (20:00)
[2019-10-05] VITALS (60 sets, daily range): BP systolic 113–166; BP diastolic 59–95
[2019-10-05] MEDS: InsuLIN REG 1unit/0.01ml Soln (100units/ml) SC SCH ×5 (00:06→23:57)
[2019-10-05] MEDS: methylPREDNISolone SOD SUCC 40 MG/ML VL IV SCH ×2 (00:06→13:08)
[2019-10-05] MEDS: ACETYLCYSTEINE 10 %(100MG/ML) SOL 4ML NEB SCH ×6 (02:41→21:55)
[2019-10-05] MEDS: LEVALBUTEROL HCL 1.25 MG/3 ML NEB NEB SCH ×6 (02:41→21:55)
[2019-10-05] MEDS: IPRATROPIUM BROM 0.5 MG/2.5ML INH SOL NEB SCH ×6 (02:42→21:55)
[2019-10-05 04:30] LABS: White Blood Cell 10.8 10^3/uL (4.4-10.8)
[2019-10-05 04:32] LABS: Hematocrit 36.9 % (36.0-46.0); Hemoglobin 12.3 g/dL (12.2-16.2); Mean Corpuscular Hemoglobin 27.9 pg (28.0-32.0); Mean Corpuscular Hgb Conc. 33.4 g/dL (32.0-36.0); Mean Corpuscular Volume 83.5 fL (80.0-100.0); Platelet Count (auto) 455 10^3/uL (140-450); Red Blood Cells 4.42 10^6/uL (4.0-5.20); Red Cell Distribution Width 14.1 % (11.8-14.3)
[2019-10-05 04:45] LABS: Basophils % (manual) 0 (0.0-2.0); Blast Cells 0; Eosinophils % (manual) 0 (0-7); Metamyelocytes % 0; Myelocytes % 0; Promyelocytes % 0; Reactive Lymphocytes 0
[2019-10-05] MEDS: VANCOMYCIN 1GM/250ML 250 ML IV SCH ×3 (04:59→21:36)
[2019-10-05] MEDS: ACCU-CHEK COMFORT CURVE STRIP VI SCH ×4 (05:56→23:51)
[2019-10-05] MEDS: MEROPENEM 1GM IVPB 100 ML IV SCH ×3 (05:56→21:51)
[2019-10-05 06:36] LABS: Albumin 1.7 g/dL (3.4-5.0); Calcium 8.4 mg/dL (8.5-10.1); Potassium 3.5 mmol/L (3.5-5.1)
[2019-10-05 06:44] LABS: Band Neutrophils % (manual) 1; Lymphocytes % (manual) 25 (10.0-50.0); Monocytes % (manual) 4 (0-12)
[2019-10-05 06:45] LABS: Bilirubin, Total 0.4 mg/dL (0.2-1.0); Total Protein 7.2 g/dL (6.4-8.2)
[2019-10-05] MEDS: PANTOPRAZOLE 40 MG/10 ML VIAL INJ IV SCH (10:15)
[2019-10-05] MEDS: SODIUM CHLOR 0.9% PF (SALINE LOCK) 10ML VIAL/SYR IV SCH ×2 (10:15→21:51)
[2019-10-05] MEDS: INSULIN 70/30 1unit/0.01ml Susp (100units/ml) SC SCH ×2 (10:16→21:54)
[2019-10-05] MEDS: ENOXAPARIN SOD 40 MG/0.4 ML SYRINGE SC SCH (10:19)
[2019-10-06] VITALS (18 sets, daily range): BP systolic 125–156; BP diastolic 71–100
[2019-10-06] MEDS: IPRATROPIUM BROM 0.5 MG/2.5ML INH SOL NEB SCH ×6 (02:29→22:12)
[2019-10-06] MEDS: ACETYLCYSTEINE 10 %(100MG/ML) SOL 4ML NEB SCH ×6 (02:29→22:12)
[2019-10-06] MEDS: LEVALBUTEROL HCL 1.25 MG/3 ML NEB NEB SCH ×6 (02:29→22:11)
[2019-10-06 04:44] LABS: Basophils # (auto) 0 10 ^3/uL (0-0.2); Basophils % (auto) 0.5 % (0.0-2.0); Eosinophils % (auto) 0.6 % (0.0-7.0); Hemoglobin 12.1 g/dL (12.2-16.2); Neutrophils # (auto) 5.3 10 ^3/uL (1.6-8.6); Red Cell Distribution Width 14.1 % (11.8-14.3); White Blood Cell 8.6 10^3/uL (4.4-10.8)
[2019-10-06 04:46] LABS: Eosinophils # (auto) 0.1 10 ^3/uL (0-0.8); Hematocrit 35.6 % (36.0-46.0); Lymphocytes # (auto) 2.6 10 ^3/uL (0.4-5.4); Lymphocytes % (auto) 30.2 % (10.0-50.0); Mean Corpuscular Hemoglobin 28.3 pg (28.0-32.0); Mean Corpuscular Hgb Conc. 34.2 g/dL (32.0-36.0); Mean Corpuscular Volume 82.8 fL (80.0-100.0); Monocytes # (auto) 0.6 10 ^3/uL (0-1.3); Monocytes % (auto) 7.4 % (0.0-12.0); Neutrophils % (auto) 61.3 % (37.0-80.0); Nucleated Red Blood Cells % 0.3 %; Platelet Count (auto) 460 10^3/uL (140-450)
[2019-10-06] MEDS: VANCOMYCIN 1GM/250ML 250 ML IV SCH (05:15)
[2019-10-06] MEDS: InsuLIN REG 1unit/0.01ml Soln (100units/ml) SC SCH ×4 (06:00→23:41)
[2019-10-06] MEDS: MEROPENEM 1GM IVPB 100 ML IV SCH (06:26)
[2019-10-06] MEDS: ACCU-CHEK COMFORT CURVE STRIP VI SCH ×4 (06:26→23:41)
[2019-10-06] MEDS: SODIUM CHLOR 0.9% PF (SALINE LOCK) 10ML VIAL/SYR IV SCH ×2 (10:24→22:05)
[2019-10-06] MEDS: predniSONE 20 MG TAB PO SCH (10:25)
[2019-10-06] MEDS: PANTOPRAZOLE 40 MG TAB PO SCH (10:25)
[2019-10-06] MEDS: INSULIN 70/30 1unit/0.01ml Susp (100units/ml) SC SCH ×2 (10:26→18:04)
[2019-10-06] MEDS: ENOXAPARIN SOD 40 MG/0.4 ML SYRINGE SC SCH (10:29)
[2019-10-06] MEDS: metFORMIN HYDROCHLORIDE 500 MG TAB PO SCH (18:09)
[2019-10-07 00:16] VITALS: BP 109/59
[2019-10-07] MEDS: ACETYLCYSTEINE 10 %(100MG/ML) SOL 4ML NEB SCH ×2 (02:09→06:52)
[2019-10-07] MEDS: IPRATROPIUM BROM 0.5 MG/2.5ML INH SOL NEB SCH ×2 (02:09→06:53)
[2019-10-07] MEDS: LEVALBUTEROL HCL 1.25 MG/3 ML NEB NEB SCH ×2 (02:09→06:53)
[2019-10-07 04:11] LABS: Basophils # (auto) 0.1 10 ^3/uL (0-0.2); Basophils % (auto) 0.8 % (0.0-2.0); Eosinophils # (auto) 0.1 10 ^3/uL (0-0.8); Eosinophils % (auto) 0.9 % (0.0-7.0); Hematocrit 34.8 % (36.0-46.0); Hemoglobin 11.6 g/dL (12.2-16.2); Lymphocytes # (auto) 2.5 10 ^3/uL (0.4-5.4); Lymphocytes % (auto) 35.2 % (10.0-50.0); Mean Corpuscular Hemoglobin 27.9 pg (28.0-32.0); Mean Corpuscular Hgb Conc. 33.3 g/dL (32.0-36.0); Mean Corpuscular Volume 83.8 fL (80.0-100.0); Monocytes # (auto) 0.5 10 ^3/uL (0-1.3); Monocytes % (auto) 7.3 % (0.0-12.0); Neutrophils # (auto) 3.9 10 ^3/uL (1.6-8.6); Neutrophils % (auto) 55.8 % (37.0-80.0); Nucleated Red Blood Cells % 0.1 %; Platelet Count (auto) 399 10^3/uL (140-450); Red Blood Cells 4.15 10^6/uL (4.0-5.20); Red Cell Distribution Width 13.9 % (11.8-14.3)
[2019-10-07 04:28] VITALS: BP 153/84
[2019-10-07] MEDS: ACCU-CHEK COMFORT CURVE STRIP VI SCH ×3 (05:22→18:33)
[2019-10-07] MEDS: InsuLIN REG 1unit/0.01ml Soln (100units/ml) SC SCH ×3 (05:22→18:34)
[2019-10-07] MEDS: INSULIN 70/30 1unit/0.01ml Susp (100units/ml) SC SCH (07:34)
[2019-10-07] MEDS: metFORMIN HYDROCHLORIDE 500 MG TAB PO SCH ×2 (07:37→18:32)
[2019-10-07 07:45] VITALS: BP 132/76
[2019-10-07] MEDS: cefTRIAXone 1GM/50ML D5W 50 ML IV SCH (08:43)
[2019-10-07] MEDS: predniSONE 20 MG TAB PO SCH (09:46)
[2019-10-07] MEDS: SODIUM CHLOR 0.9% PF (SALINE LOCK) 10ML VIAL/SYR IV SCH ×2 (09:46→22:00)
[2019-10-07] MEDS: PANTOPRAZOLE 40 MG TAB PO SCH (09:46)
[2019-10-07] MEDS: ENOXAPARIN SOD 40 MG/0.4 ML SYRINGE SC SCH (09:47)
[2019-10-07] MEDS ORDERED: glipiZIDE 5 MG TAB PO SCH (11:04)
[2019-10-07 13:00] VITALS: BP 152/82
[2019-10-07 17:12] VITALS: BP 126/75
[2019-10-07] MEDS ORDERED: ACETYLCYSTEINE 10 %(100MG/ML) SOL 4ML NEB SCH (18:00)
[2019-10-07] MEDS ORDERED: LEVALBUTEROL HCL 1.25 MG/3 ML NEB NEB SCH (18:00)
[2019-10-07] MEDS ORDERED: IPRATROPIUM BROM 0.5 MG/2.5ML INH SOL NEB SCH (18:00)
[2019-10-07] MEDS: glipiZIDE 5 MG TAB PO SCH (18:32)
[2019-10-07 22:25] VITALS: BP 133/73
[2019-10-08 05:21] VITALS: BP 140/84
[2019-10-08] MEDS: ACCU-CHEK COMFORT CURVE STRIP VI SCH ×4 (06:09→18:22)
[2019-10-08] MEDS: InsuLIN REG 1unit/0.01ml Soln (100units/ml) SC SCH ×4 (06:21→18:21)
[2019-10-08] MEDS: IPRATROPIUM BROM 0.5 MG/2.5ML INH SOL NEB SCH ×3 (06:40→22:21)
[2019-10-08] MEDS: ACETYLCYSTEINE 10 %(100MG/ML) SOL 4ML NEB SCH ×3 (06:41→22:22)
[2019-10-08] MEDS: LEVALBUTEROL HCL 1.25 MG/3 ML NEB NEB SCH ×3 (06:41→22:22)
[2019-10-08] MEDS: glipiZIDE 5 MG TAB PO SCH ×2 (06:47→18:20)
[2019-10-08] MEDS: metFORMIN HYDROCHLORIDE 500 MG TAB PO SCH ×2 (08:15→18:20)
[2019-10-08 09:00] VITALS: BP 123/75
[2019-10-08] MEDS: ENOXAPARIN SOD 40 MG/0.4 ML SYRINGE SC SCH (10:47)
[2019-10-08] MEDS: SODIUM CHLOR 0.9% PF (SALINE LOCK) 10ML VIAL/SYR IV SCH ×2 (10:47→22:00)
[2019-10-08] MEDS: PANTOPRAZOLE 40 MG TAB PO SCH (10:47)
[2019-10-08] MEDS: cefTRIAXone 1GM/50ML D5W 50 ML IV SCH (10:47)
[2019-10-08] MEDS: predniSONE 20 MG TAB PO SCH (10:47)
[2019-10-08 13:13] VITALS: BP 121/76
[2019-10-08 16:59] VITALS: BP 121/81
[2019-10-08 21:14] VITALS: BP 121/81
[2019-10-08 21:54] VITALS: BP 132/82
[2019-10-09] MEDS: InsuLIN REG 1unit/0.01ml Soln (100units/ml) SC SCH ×4 (02:08→17:48)
[2019-10-09 04:49] VITALS: BP 143/81
[2019-10-09] MEDS: ACCU-CHEK COMFORT CURVE STRIP VI SCH ×4 (06:05→17:48)
[2019-10-09] MEDS: glipiZIDE 5 MG TAB PO SCH ×2 (07:06→17:47)
[2019-10-09] MEDS: IPRATROPIUM BROM 0.5 MG/2.5ML INH SOL NEB SCH ×3 (07:58→22:50)
[2019-10-09] MEDS: LEVALBUTEROL HCL 1.25 MG/3 ML NEB NEB SCH ×3 (07:58→22:50)
[2019-10-09] MEDS: ACETYLCYSTEINE 10 %(100MG/ML) SOL 4ML NEB SCH ×3 (07:59→22:50)
[2019-10-09] MEDS: metFORMIN HYDROCHLORIDE 500 MG TAB PO SCH ×2 (08:50→17:47)
[2019-10-09 09:00] VITALS: BP 136/86
[2019-10-09] MEDS: cefTRIAXone 1GM/50ML D5W 50 ML IV SCH (11:20)
[2019-10-09] MEDS: SODIUM CHLOR 0.9% PF (SALINE LOCK) 10ML VIAL/SYR IV SCH ×2 (11:20→22:28)
[2019-10-09] MEDS: predniSONE 20 MG TAB PO SCH (11:21)
[2019-10-09] MEDS: ENOXAPARIN SOD 40 MG/0.4 ML SYRINGE SC SCH (11:21)
[2019-10-09] MEDS: PANTOPRAZOLE 40 MG TAB PO SCH (11:21)
[2019-10-09 13:00] VITALS: BP 138/81
[2019-10-09 16:36] VITALS: BP 119/70
[2019-10-09 22:09] VITALS: BP 128/79
[2019-10-10] MEDS: InsuLIN REG 1unit/0.01ml Soln (100units/ml) SC SCH ×4 (01:41→17:46)
[2019-10-10 05:03] VITALS: BP 138/87
[2019-10-10] MEDS: IPRATROPIUM BROM 0.5 MG/2.5ML INH SOL NEB SCH ×3 (06:14→19:50)
[2019-10-10] MEDS: LEVALBUTEROL HCL 1.25 MG/3 ML NEB NEB SCH ×3 (06:14→19:51)
[2019-10-10] MEDS: ACETYLCYSTEINE 10 %(100MG/ML) SOL 4ML NEB SCH ×3 (06:15→19:51)
[2019-10-10] MEDS: ACCU-CHEK COMFORT CURVE STRIP VI SCH ×4 (06:27→17:44)
[2019-10-10] MEDS: glipiZIDE 5 MG TAB PO SCH ×2 (06:29→17:39)
[2019-10-10] MEDS: PANTOPRAZOLE 40 MG TAB PO SCH (08:03)
[2019-10-10] MEDS: predniSONE 20 MG TAB PO SCH (08:03)
[2019-10-10] MEDS: ENOXAPARIN SOD 40 MG/0.4 ML SYRINGE SC SCH (08:04)
[2019-10-10] MEDS: SODIUM CHLOR 0.9% PF (SALINE LOCK) 10ML VIAL/SYR IV SCH (08:04)
[2019-10-10] MEDS: cefTRIAXone 1GM/50ML D5W 50 ML IV SCH (08:04)
[2019-10-10] MEDS: metFORMIN HYDROCHLORIDE 500 MG TAB PO SCH ×2 (08:04→17:39)
[2019-10-10 08:30] VITALS: BP 147/83
[2019-10-10 13:00] VITALS: BP 119/84
[2019-10-10 16:27] VITALS: BP 131/77
[2019-10-10 22:00] VITALS: BP 120/79
[2019-10-11] MEDS: ACCU-CHEK COMFORT CURVE STRIP VI SCH ×3 (00:55→11:42)
[2019-10-11] MEDS: SODIUM CHLOR 0.9% PF (SALINE LOCK) 10ML VIAL/SYR IV SCH ×2 (00:55→09:30)
[2019-10-11] MEDS: InsuLIN REG 1unit/0.01ml Soln (100units/ml) SC SCH ×3 (00:58→11:44)
[2019-10-11 05:28] VITALS: BP 132/81
[2019-10-11] MEDS: glipiZIDE 5 MG TAB PO SCH (06:32)
[2019-10-11] MEDS: IPRATROPIUM BROM 0.5 MG/2.5ML INH SOL NEB SCH (06:58)
[2019-10-11] MEDS: LEVALBUTEROL HCL 1.25 MG/3 ML NEB NEB SCH ×2 (06:59→14:43)
[2019-10-11] MEDS: ACETYLCYSTEINE 10 %(100MG/ML) SOL 4ML NEB SCH (06:59)
[2019-10-11] MEDS: metFORMIN HYDROCHLORIDE 500 MG TAB PO SCH (08:18)
[2019-10-11 08:42] VITALS: BP 128/79
[2019-10-11] MEDS: cefTRIAXone 1GM/50ML D5W 50 ML IV SCH (09:00)
[2019-10-11] MEDS: predniSONE 20 MG TAB PO SCH (09:30)
[2019-10-11] MEDS: PANTOPRAZOLE 40 MG TAB PO SCH (09:30)
[2019-10-11] MEDS: ENOXAPARIN SOD 40 MG/0.4 ML SYRINGE SC SCH (09:30)
[2019-10-11 12:59] VITALS: BP 131/83
== END 2019-10-11 17:30 | disposition home health service (06) | DRG 870 ==
LOC: EDBD 19:25 → ER 19:25 → TELE 19:26 → ICU WEST 09-21 05:59 → DOU 10-06 04:14 → DOU IN ICU 10-06 04:16 → TELE-CENTR 10-07 11:16 → CENTRAL 10-07 15:21
PROVIDERS: ADMIT Nurse Practitioner; ATTEND Internal Medicine
PROC: 5A1955Z Respiratory Ventilation, Greater than 96 Consecutive Hours (ICD-10-PCS; principal; 2019-09-21)
PROC: 0BH17EZ Insertion of Endotracheal Airway into Trachea, Via Natural or Artificial Opening (ICD-10-PCS; 2019-09-21)
PROC: 0B9D8ZX Drainage of Right Middle Lung Lobe, Via Natural or Artificial Opening Endoscopic, Diagnostic (ICD-10-PCS; 2019-09-28)
PROC: 5A09357 Assistance with Respiratory Ventilation, Less than 24 Consecutive Hours, Continuous Positive Airway Pressure (ICD-10-PCS; 2019-09-29)
PROC: 5A09357 Assistance with Respiratory Ventilation, Less than 24 Consecutive Hours, Continuous Positive Airway Pressure (ICD-10-PCS; 2019-09-30)
PROC: 0BC18ZZ Extirpation of Matter from Trachea, Via Natural or Artificial Opening Endoscopic (ICD-10-PCS; 2019-10-02)
PROC: 0BC28ZZ Extirpation of Matter from Carina, Via Natural or Artificial Opening Endoscopic (ICD-10-PCS; 2019-10-02)
DX: A41.9 Sepsis, unspecified organism (principal); E11.10 Type 2 diabetes mellitus with ketoacidosis without coma; E43 Unspecified severe protein-calorie malnutrition; J69.0 Pneumonitis due to inhalation of food and vomit; J96.01 Acute respiratory failure with hypoxia; J96.02 Acute respiratory failure with hypercapnia; N17.0 Acute kidney failure with tubular necrosis; J98.11 Atelectasis; N39.0 Urinary tract infection, site not specified; Z16.11 Resistance to penicillins; D72.823 Leukemoid reaction; E87.8 Other disorders of electrolyte and fluid balance, not elsewhere classified; Z79.4 Long term (current) use of insulin; Z20.828 Contact with and (suspected) exposure to other viral communicable diseases
CPT/HCPCS: 31500; 36415; 36569; 36600; 51702; 71045; 71275; 80048; 80053; 80202; 80307; 81001; 82010; 82040; 82150; 82728; 82805; 82962; 83036; 83605; 83690; 83735; 83880; 83930; 84100; 84443; 84478; 84484; 84702; 85007; 85025; 85027; 85379; 85610; 85730; 87040; 87070; 87077; 87081; 87086; 87088; 87186; 87205; 87493; 87804; 87880; 92610; 93005; 93306; 94002; 94003; 94640; 94660; 96365; 96375; 97110; 97530; 99291; A4618; C9113; G0378; J0171; J0330; J0461; J0696; J1100; J1450; J1815; J1956; J2185; J2248; J2250; J2543; J2704; J3480; J7042; J7060; J7131